=== PATIENT | female | born 1955 | race Caucasian/White ===

== ENCOUNTER 2018-11-11 07:35 | Day surgery (SDC) | payer BC ==
[~2018-11-11 07:35] MED LIST: Lactated Ringers 1,000 ML IV SCH; Sodium Chloride 0.9% 10 ML Syringe FLUSH PRN
[2018-11-11] MEDS ORDERED: Midazolam 1 MG/ML 2 ML SDV IV ONE (08:35)
[2018-11-11] MEDS ORDERED: Propofol 200 MG/20 ML SDV IV ONE (08:35)
[2018-11-11] MEDS ORDERED: fentaNYL 100 MCG/2 ML SDV IV ONE (08:35)
[2018-11-11] MEDS ORDERED: Bupivacaine 0.5% 30 ML SDV ONE (09:00)
[2018-11-11] MEDS ORDERED: Lidocaine 1% with EPINEPHrine 1:100,000 20 ML MDV ONE (09:00)
--- NOTE | 2018-11-11 09:29 | PCM.OPNOTE ---
- General Post-Op/Procedure Note Date of Surgery/Procedure: 11/11/18 Operative Procedure(s): excision of lipoma of back Findings: large approximately 6 x3 cm mass fragmented Pre Op Diagnosis: lipoma of back Post-Op Diagnosis: Same Anesthesia Technique: Local (10 ml 1 % lido with epi/0.5% buvipicaine), MAC Primary Surgeon: Alan Knight Anesthesia Provider: Gary Mart Pathology: lipoma Complications: None Condition: Good Free Text/Narrative:: see dictation
[2018-11-11 10:59] VITALS: BP 114/62; PULSE 70
--- NOTE | 2018-11-11 12:01 | OR ---
DATE OF OPERATION: 11/11/2018 SURGEON: Alan Knight MD PROCEDURE PERFORMED: Incisional biopsy of lipoma of the back. PREOPERATIVE DIAGNOSIS: Lipoma of the back. POSTOPERATIVE DIAGNOSIS: Lipoma of the back. INDICATIONS FOR PROCEDURE: This is a 63-year-old white female who had a growth involving the right side and just medial to the posterior axillary line on the right side. This has gotten progressively larger with time and is consistent with a lipoma of at least 5 cm in diameter. The patient was offered an excisional biopsy. DESCRIPTION OF OPERATION: After an excellent IV sedation was administered, the area was prepped and draped. 10 mL of 1:1 mixture of 1% lidocaine with epinephrine was used to infiltrate the planned incision site as well as the surrounding tissue. A 6 inches incision was then carried out. The underlying subcu fat was divided and the lipoma itself was easily palpated. This was excised in piecemeal fashion due to the septate nature of the lesion until the entire mass was excised, which was approximately 6 cm in diameter by about 3 cm in depth. Several small spots what looked like could be potentially bleeding was controlled with electrocautery. The field was then irrigated. The subcu fat was approximated with a running 2-0 Vicryl and then a running subcu 3-0 Vicryl were used to approximate the skin. Steri-Strips and a bulky dressing was applied. The patient tolerated the procedure well, was taken to recovery in good condition. /[id number] /EMMAL
== END 2018-11-11 10:55 | disposition home or self-care (01) ==
LOC: FB.SDS 07:35
PROVIDERS: ATTEND Surgery
DX: D17.1 Benign lipomatous neoplasm of skin and subcutaneous tissue of trunk (principal); Z85.3 Personal history of malignant neoplasm of breast; Z79.899 Other long term (current) drug therapy
CPT/HCPCS: 21931; 88304; J2250; J2704; J3010; J3490; J7120

== ENCOUNTER 2020-11-01 07:14 | Day surgery (SDC) | payer MEDICARE, BC ==
[2020-11-01] MEDS ORDERED: Rocuronium 100 MG/10 ML MDV IV ONE (07:15)
[2020-11-01] MEDS ORDERED: Sodium Chloride 0.9% 10 ML Syringe FLUSH PRN (07:15)
[2020-11-01] MEDS ORDERED: Dexamethasone 4 MG/ML 5 ML MDV IVPUSH ONE (07:15)
[2020-11-01] MEDS ORDERED: Ondansetron 4 MG/2 ML SDV IVPUSH ONE ×2 (07:15)
[2020-11-01] MEDS ORDERED: Neostigmine Methylsulfate 10 MG/10 ML MDV IVPUSH ONE (07:15)
[2020-11-01] MEDS ORDERED: fentaNYL 100 MCG/2 ML SDV IV ONE (07:15)
[2020-11-01] MEDS ORDERED: Propofol 200 MG/20 ML SDV IV ONE (07:15)
[2020-11-01] MEDS ORDERED: Midazolam 1 MG/ML 2 ML SDV IV ONE (07:15)
[2020-11-01] MEDS ORDERED: Lactated Ringers 1,000 ML IV SCH (07:15)
[2020-11-01] MEDS ORDERED: ceFAZolin 2 GM in Sodium Chloride 0.9% 100 ML IV ONE (07:15)
[2020-11-01] MEDS ORDERED: Lactated Ringers 1,000 ML IV ONE (07:15)
[2020-11-01] MEDS ORDERED: Glycopyrrolate 0.2 MG/ML 5 ML MDV IV ONE (07:15)
[2020-11-01] MEDS ORDERED: HYDROmorphone 2 MG/ML SDV IV ONE (07:15)
[2020-11-01] MEDS ORDERED: diphenhydrAMINE 50 MG/ML SDV IVPUSH ONE (07:15)
[2020-11-01] MEDS ORDERED: Succinylcholine 200 MG/10 ML MDV IV ONE (07:15)
--- NOTE | 2020-11-01 08:46 | PCM.PN ---
- General Info Date of Service: 11/01/20 Admission Dx/Problem (Free Text): Cholelithiasis Functional Status: Reports: Pain Controlled, Other (Has not had any recent gallbladder attacks) - Review of Systems General: Denies: Fever, Chills Pulmonary: Reports: No Symptoms Gastrointestinal: Denies: Abdominal Pain - Patient Data Vitals - Most Recent: Last Vital Signs Temp 97.5 F 11/01/20 07:30 Pulse 80 11/01/20 07:30 Resp 18 11/01/20 07:30 BP 150/81 H 11/01/20 07:30 Pulse Ox 95 11/01/20 07:30 Weight - Most Recent: 219 lb Lab Results Last 24 Hours: Laboratory Results - last 24 hr 11/01/20 Range/Units 07:45 SARS-CoV-2 RNA ([facility]I) Negative (NEGATIVE) Med Orders - Current: Current Medications Lactated Ringer's (Ringers, Lactated) 1,000 mls @ 125 mls/hr IV ASDIRECTED EDITH Sodium Chloride (Sodium Chloride 0.9% 10 Ml Syringe) 10 ml FLUSH ASDIRECTED PRN PRN Reason: Keep Vein Open Discontinued Medications Cefazolin Sodium/Dextrose (Ancef 2 Gm/50 Ml) 50 mls @ 100 mls/hr IV ONETIME ONE Stop: 11/01/20 07:59 - Exam General: Alert, Oriented Lungs: Clear to Auscultation Cardiovascular: Regular Rate, Regular Rhythm GI/Abdominal Exam: Soft, Non-Tender, No Distention Extremities: Non-Tender - Patient Data Lab Results Last 24 hrs: Laboratory Results - last 24 hr 11/01/20 Range/Units 07:45 SARS-CoV-2 RNA ([facility]I) Negative (NEGATIVE) Sepsis Event Note - Focused Exam Vital Signs: Vital Signs Temp Pulse Resp BP Pulse Ox 11/01/20 07:30 97.5 F 80 18 150/81 H 95 - Problem List Review Problem List Initiated/Reviewed/Updated: Yes - My Orders Last 24 Hours: My Active Orders 11/01/20 Breakfast Nothing Per Oral Diet [DIET] 11/01/20 07:15 Patient Status [ADT] Routine Patient to Empty Bladder [RC] ASDIRECTED RT Incentive Spirometry [RC] ASDIRECTED Verify Patient Consent Obtain [RC] ASDIRECTED Lactated Ringers [Ringers, Lactated] 1,000 ml IV ASDIRECTED Sodium Chloride 0.9% [Saline Flush] 10 ml FLUSH ASDIRECTED PRN Peripheral IV Insertion Adult [OM.PC] Routine Sequential Compression Device [OM.PC] Routine - Assessment Assessment:: Symptomatic Cholelithiasis - Plan Plan:: Laparoscopic Cholecystectomy
[2020-11-01] MEDS ORDERED: Bupivacaine 0.5%/EPINEPHrine 1:200,000 10 ML SDV INJECT ONE (09:20)
--- NOTE | 2020-11-01 11:20 | PCM.OPNOTE ---
- General Post-Op/Procedure Note Date of Surgery/Procedure: 11/01/20 Operative Procedure(s): Laparoscopic Cholecystectomy Findings: Large chronically inflamed gallbladder with multiple large stones His recent liver appeared normal Pre Op Diagnosis: Chronic cholecystitis with cholelithiasis Post-Op Diagnosis: Same Anesthesia Technique: General ET Tube Primary Surgeon: Trent Romero Pathology: gallbladder EBL in mLs: 30 Complications: None Condition: Good
--- NOTE | 2020-11-01 12:05 | OR ---
DATE OF OPERATION: 11/01/2020 SURGEON: Trent Romero MD PREOPERATIVE DIAGNOSIS: Chronic cholecystitis with cholelithiasis. POSTOPERATIVE DIAGNOSIS: Chronic cholecystitis with cholelithiasis. OPERATION PERFORMED: Laparoscopic cholecystectomy. INDICATIONS FOR SURGERY: This 65-year-old female had an attack of severe upper abdominal pain recently. She is known to have cholelithiasis which was felt to be the source of her symptoms and she comes for cholecystectomy. FINDINGS: The patient's gallbladder was markedly enlarged and has a very thick chronically inflamed gallbladder wall. It contains multiple large stones and thick bile. The adjacent liver appeared normal as did other intraabdominal organs appear as visualized. There were adhesions in the lower abdomen from previous surgery. PROCEDURE IN DETAIL: The patient was taken to the operating room. She was given general endotracheal anesthesia and the abdomen was sterilely prepped and draped. A supraumbilical stab wound incision was made. Through this, a Veress needle was inserted and pneumoperitoneum via this needle to a pressure of 15 mmHg was achieved with carbon dioxide. The Veress needle was then replaced with a 12 mm trocar into which the 5 mm variable angled laparoscopic camera was inserted. Under direct visualization, 5 mm trocars were placed in the subxiphoid midline and in 2 areas of the right abdomen. All trocar sites were infiltrated with Marcaine prior to incision. Intra-abdominal inspection was carried out and attention was turned to the gallbladder. Adhesions of the omentum to the gallbladder were carefully freed using sharp and blunt dissection until the lower portion of the gallbladder was able to be identified. Fatty tissue overlying the lower portion of the gallbladder and the cystic duct was carefully cleared until the cystic duct was isolated. Additional dissection along the right side of the gallbladder was performed and the cystic artery was identified and isolated. An accessory cystic artery on the right side of the gallbladder was also identified and isolated. Both of these arteries were doubly clipped and divided. Additional dissection was carried out until the triangle of Calot was clear. The cystic duct skeletonized and then it was doubly clipped and divided near the gallbladder with great care being used to avoid any injury to the common bile duct. The gallbladder was then dissected free from the undersurface of the liver using the hook cautery device. With careful dissection, the gallbladder was able to be completely freed from the liver. It was placed into an Endo retrieval bag and then extracted from the abdominal cavity. Because of the large size and thick gallbladder wall, the skin and fascial incision had to be extended at the umbilicus to allow the gallbladder to be removed. Once this had been accomplished, the fascia of this suprapubic trocar site was closed with a running 0 Vicryl suture. Reinspection of the gallbladder bed was carried out and copious irrigation of the region was performed. With no sign of bleeding or any other complication, the trocars were removed under direct visualization and the pneumoperitoneum was evacuated. Wounds were irrigated with Betadine and saline solution. Skin incisions approximated with interrupted 4-0 Vicryl in a subcuticular stitch. The large periumbilical incision was closed with a running 4-0 Vicryl subcuticular stitch. Benzoin and Steri-Strips followed by antibiotic ointment and sterile dressings were placed. The patient was awakened, extubated, and taken from the operating room in satisfactory condition. ESTIMATED BLOOD LOSS: 30 mL. COMPLICATIONS: None. PROGNOSIS: Good. /[id number] KAVEH/EMMAL
[2020-11-01] MEDS ORDERED: Metoclopramide 10 MG/2 ML SDV IVPUSH ONE (13:10)
[2020-11-01 14:24] VITALS: BP 125/59; PULSE 69
== END 2020-11-01 14:05 | disposition home or self-care (01) ==
LOC: FB.SDS 07:14
PROVIDERS: ATTEND Surgery
DX: K80.10 Calculus of gallbladder with chronic cholecystitis without obstruction (principal); E78.5 Hyperlipidemia, unspecified; Z01.812 Encounter for preprocedural laboratory examination; Z20.822 Contact with and (suspected) exposure to COVID-19; Z79.899 Other long term (current) drug therapy
CPT/HCPCS: 00790; 47562; 88304; 94150; J0330; J0690; J1100; J1170; J1200; J2250; J2405; J2704; J2710; J3010; J3490; J7120; U0002